=== PATIENT | male | born 1945 | race Caucasian/White ===

== ENCOUNTER 2016-10-17 14:22 | Observation (INO) | payer OTHER ==
[2016-10-17] MEDS ORDERED: ATIVAN INJ 2 MG VIAL ONE (14:30)
[2016-10-17] MEDS ORDERED: NS 1000 ML 1,000 ML ONE (14:32)
[2016-10-17] MEDS ORDERED: NS 1000 ML 1,000 ML IV ONE (14:33)
[2016-10-17] MEDS ORDERED: SOLU-Medrol 125 MG VIAL ONE (14:50)
[2016-10-17] MEDS ORDERED: BENADRYL INJ 50 MG VIAL ONE (14:50)
[2016-10-17] MEDS ORDERED: BENADRYL INJ 50 MG VIAL IVP ONE (14:54)
[2016-10-17] MEDS ORDERED: SOLU-Medrol 125 MG VIAL IVP ONE (14:54)
[2016-10-17] MEDS ORDERED: ATIVAN INJ 2 MG VIAL IVP ONE (14:57)
--- NOTE | 2016-10-17 14:57 | DR.GENAD ---
HPI - PCP Primary Care Physician: NORBERT - HPI Comment HPI Comment: HISTORY BELOW. - Complaint/Symptoms Chief Complaint Doctors Comments: PATIENT TOOK THE NEW COMBINATION MED FOR DEMENTIA AND BECAME AGGITATED COMPLAINING OF THROAT SWELLING AND SOB. ALSO PRESSURE IN THE HEAD. HE IS RESTLESS. Chief Complaint:: HURTING ALL OVER, CHANGES IN BLOOD PRESSURE. STARTED NEW MEDS FROM KAREN MCKEON. NUMB ALL OVER - Nurses notes reviewed Nurses Notes Review: Yes - Source History Provided: Family Member - Mode of Arrival Mode of Arrival: Wheelchair - Timing Onset of Chief Complaint: 10/17/16 Came on: Suddenly - Duration Duration: Constant Duration: Hours - Severity Severity: Moderate PMH - PMH Past Medical History: No Past Surgical History: No - Family History History of Family Medical Conditions: No - Social History Does any household member use tobacco: No Alcohol Use: None Do you use any recreational Drugs:: No Lives With: Family Lives Where: Home - infectious screening In the last 2 months have you had wt loss of >10#?: NO Have you had fever, night sweats or hemotysis?: No Have you traveled outside the country in the last 6 months?: No Isolation: Standard ROS - Review of Systems Constitutional: No Symptoms Reported Eyes: No Symptoms Reported ENTM: Mouth Swelling, Throat Pain. negative: Ear Pain, Nose Discharge, Nose Congestion Respiratoy: Non-Productive Cough, Short of Breath, Wheezing. negative: Hemoptysis Cardiovascular: Chest Pain, Edema Gastrointestinal/Abdominal: negative: Abdominal Pain, Diarrhea, Nausea, Vomiting Genitourinary: negative: Dysuria, Frequency, Hematuria Neurological: Headache, Dizziness Musculoskeletal: Muscle Pain Integumentary: No Symptoms Reported Hematologic/Lymphatic: No Symptoms Reported Endocrine: No Symptoms Reported All Other Systems: Reviewed and Negative Unable to Obtain Due To: Altered mental status PE - Vital Signs Vitals: Temperature 97.1 F Pulse Rate 79 Respiratory Rate 20 Blood Pressure 170/85 O2 Sat by Pulse Oximetry 100 - General Limitations: Altered Mental Status General Appearance: Alert, Anxious, Other (AGGITATED) - Head Head Exam: Normal Inspection - Eyes Eye exam: Normal Appearance - ENT ENT Exam: Normal External Ear Exam External Ear Exam: Normal External Inspection TM/Canal Exam: Bilateral Normal Nose Exam: Normal Nose Exam Mouth Exam: Normal Inspection Throat Exam: Normal Inspection - Neck Neck Exam: Trachea Midline - Chest Chest Inspection: Symmetric Chest Wall Rise - Respiratory Respiratory Exam: Normal Lung Sounds Bilat Respiratory Exam: Bilateral Clear to Auscultation - Cardiovascular Cardiovascular Exam: Regular Rate, Normal Rhythm, Normal Heart Sounds - Abdominal Exam Abdominal Exam: Normal Bowel Sounds, Soft. negative: Tenderness - Extremities Extremities Exam: Normal Inspection - Back Back Exam: Normal Inspection - Neurologic Neurological Exam: Alert - Psychiatric Psychiatric Exam: Agitated, Anxious - Skin Skin Exam: Erythema MDM - Additional Information Additional Information Obtained From: Family - Differential Diagnosis Differential Diagnosis: CVA, DRUG SIDE EFFECT, ALLERGIC REACTION TO MEDICATION, [place], UTI Course - Treatment Treatment: SEE ORDERS. IV MEDS FOR ALLERGIC REACTION AND ATIVAN IN. PATIENT CALMING DOWN. - Consultation Consultation Comments: DISCUSS PATIENT WITH DR. MCKEON. HE WILL ADMIT PATIENT. - Education/Counseling Education/Counseling: Patient, Family, Education Educated On: Treatment, Diagnosis ROR - Labs Reviewed Laboratory Results Reviewed?: Yes Result Diagrams: 10/18/16 04:20 10/18/16 04:20 - XRAY XRAY Interpreted by: Radiologist XRAY Findings: REPORT DISCUSS WITH PATIENTS FAMILY. - EKG Rhythm: NSR (EKG NOTED) - Diagnosis Discharge Problem: Pressure in head Mental status alteration Qualifiers: Altered mental status type: transient alteration of awareness Qualified Code(s) : R40.4 - Transient alteration of awareness Allergic reaction Qualifiers: Encounter type: initial encounter Qualified Code(s): T78.40XA - Allergy, unspecified, initial encounter - Discharge Plan Disposition: 01 HOME, SELF-CARE Condition: Stable - Follow ups/Referrals - Instructions
[2016-10-17 15:13] LABS: BASOPHILS # (AUTO) 0.1 X10^3/uL (0.0-0.1); BASOPHILS % (AUTO) 0.7 % (0.2-1.0); EOSINOPHILS # (AUTO) 0.1 x10^3/uL (0.0-0.2); EOSINOPHILS % (AUTO) 0.5 % (0.9-2.9); HEMATOCRIT 37.6 % (42.0-54.0); HEMOGLOBIN 12.7 g/dL (13.5-18.0); LYMPHOCYTES # (AUTO) 1.7 X10^3/uL (1.3-2.9); MEAN CORPUSCULAR HEMOGLOBIN 30.2 pg (27.0-34.0); MEAN CORPUSCULAR HGB CONC 33.7 g/dL (33.0-35.0); MEAN CORPUSCULAR VOLUME 89.6 fL (80.0-100.0); MEAN PLATELET VOLUME 10.4 fL (7.4-11.0); MONOCYTES % (AUTO) 17.2 % (0.0-13.0); NEUTROPHILS # (AUTO) 7.6 x10^3/uL (2.2-4.8); NEUTROPHILS % (AUTO) 66.6 % (42.0-75.0); PLATELET COUNT 145 X10^3/uL (150.0-450.0); RED BLOOD COUNT 4.19 X10^6/uL (4.7-6.0); RED CELL DISTRIBUTION WIDTH 17.3 % (11.6-16.5); WHITE BLOOD COUNT 11.5 X10^3/uL (3.6-10.0)
[2016-10-17 15:29] LABS: ALANINE AMINOTRANSFERASE 28 Units/L (12-78); ALBUMIN 4.2 g/dL (3.4-5.0); ALKALINE PHOSPHATASE 85 Units/L (46-116); ASPARTATE AMINO TRANSFERASE 45 Units/L (15-37); BLOOD UREA NITROGEN 13 mg/dL (7-18); CALCIUM 9.4 mg/dL (8.5-10.1); CARBON DIOXIDE 27.5 mmol/L (21-32); CHLORIDE 106 mmol/L (98-107); CKMB % 0.5 % (<4); COR NA(FOR HYPERGLY) 144 mmol/L (136-145); CREATINE KINASE 615 Units/L (39-308); CREATININE 1.17 mg/dL (0.70-1.30); GLUCOSE 150 mg/dL (65-99); SODIUM 143 mmol/L (136-145); TOTAL PROTEIN 7.2 g/dL (6.4-8.2); TROPONIN I < 0.02 ng/mL (0-1.5); eGFR BLACK RACES > 60 (>60); eGFR NON BLACK RACES > 60 (>60)
--- NOTE | 2016-10-17 15:31 | CT ---
STUDY: CT HEAD WITHOUT CONTRAST HISTORY: Altered mental status. COMPARISON: None. TECHNIQUE: Multiple axial images of the head were obtained from the skull base to the vertex without administration of IV contrast. Automated exposure control (AEC) was utilized to adjust the MA and/o r kV. Findings: The sulci, cisterns and ventricles are age appropriate. There are scattered foci of low at tenuation in the periventricular and subcortical white matter of both hemispheres. This is a nonspec ific finding which likely represents microangiopathic change in a patient of this age. There is no evidence of acute territorial infarction, hemorrhage, mass, mass effect or midline shift . There are no abnormal extra-axial fluid collections. There is no evidence of acute osseous abnorma lity or significant soft tissue swelling. IMPRESSION: 1. No evidence of acute intracranial abnormality. 2. Nonspecific white matter change. 3. If there remains strong clinical concern for acute intracranial abnormality, then an MRI examinat ion should be considered for further evaluation. Reported By:
--- NOTE | 2016-10-17 15:33 | RAD ---
HISTORY: Chest pain Study: Chest one view Comparison: None Findings: The trachea is midline. The cardiac silhouette is unremarkable. The lungs are clear without focal infiltrate or effusion. The bony thorax is unremarkable. IMPRESSION: 1. No acute cardiopulmonary disease. Reported By:
[2016-10-17 15:36] LABS: ANISOCYTOSIS SLIGHT; GIANT PLATELET FEW; PLATELET MORPHOLOGY COMMENT ABNORMAL (NORMAL)
[2016-10-17 15:37] LABS: HYPOCHROMASIA SLIGHT; TARGET CELLS PRESENT
[2016-10-17 15:39] LABS: B-TYPE NATRIURETIC PEPTIDE 42.9 pg/mL (0-79)
[2016-10-17 21:43] VITALS: BMI 33.2
[2016-10-17 21:48] LABS: CKMB % 0.6 % (<4); CREATINE KINASE 347 Units/L (39-308); CREATINE KINASE MB 1.9 ng/mL (0-4.0); TROPONIN I < 0.02 ng/mL (0-1.5)
[2016-10-17] MEDS: NS 1000 ML 1,000 ML IV SCH (23:47)
[2016-10-18 05:33] LABS: BASOPHILS # (AUTO) 0.1 X10^3/uL (0.0-0.1); BASOPHILS % (AUTO) 0.6 % (0.2-1.0); HEMATOCRIT 32.9 % (42.0-54.0); HEMOGLOBIN 11.1 g/dL (13.5-18.0); LYMPHOCYTES # (AUTO) 0.9 X10^3/uL (1.3-2.9); LYMPHOCYTES % (AUTO) 6.6 % (21.0-51.0); MEAN CORPUSCULAR HEMOGLOBIN 30.3 pg (27.0-34.0); MEAN CORPUSCULAR HGB CONC 33.7 g/dL (33.0-35.0); MEAN CORPUSCULAR VOLUME 89.8 fL (80.0-100.0); MEAN PLATELET VOLUME 10.2 fL (7.4-11.0); MONOCYTES # (AUTO) 1.2 x10^3/uL (0.3-0.8); MONOCYTES % (AUTO) 8.9 % (0.0-13.0); NEUTROPHILS # (AUTO) 11.4 x10^3/uL (2.2-4.8); NEUTROPHILS % (AUTO) 83.9 % (42.0-75.0); PLATELET COUNT 130 X10^3/uL (150.0-450.0); RED BLOOD COUNT 3.66 X10^6/uL (4.7-6.0); RED CELL DISTRIBUTION WIDTH 16.9 % (11.6-16.5); WHITE BLOOD COUNT 13.6 X10^3/uL (3.6-10.0)
[2016-10-18 05:42] LABS: ALANINE AMINOTRANSFERASE 23 Units/L (12-78); ALBUMIN 3.3 g/dL (3.4-5.0); ALKALINE PHOSPHATASE 70 Units/L (46-116); ASPARTATE AMINO TRANSFERASE 31 Units/L (15-37); BLOOD UREA NITROGEN 12 mg/dL (7-18); CALCIUM 8.6 mg/dL (8.5-10.1); CARBON DIOXIDE 27.3 mmol/L (21-32); CHLORIDE 108 mmol/L (98-107); CKMB % 0.7 % (<4); COR CA(FOR HYPOALB) 9.2 mg/dL (8.5-10.1); COR NA(FOR HYPERGLY) 143 mmol/L (136-145); CREATINE KINASE 201 Units/L (39-308); CREATINE KINASE MB 1.4 ng/mL (0-4.0); CREATININE 0.87 mg/dL (0.70-1.30); GLUCOSE 115 mg/dL (65-99); MAGNESIUM 1.9 mg/dL (1.7-2.9); SODIUM 143 mmol/L (136-145); TOTAL PROTEIN 6.1 g/dL (6.4-8.2); TROPONIN I < 0.02 ng/mL (0-1.5); eGFR BLACK RACES > 60 (>60); eGFR NON BLACK RACES > 60 (>60)
[2016-10-18 06:06] LABS: PLATELET MORPHOLOGY COMMENT NORMAL (NORMAL)
[2016-10-18 06:07] LABS: ANISOCYTOSIS SLIGHT; HYPOCHROMASIA SLIGHT
[2016-10-18] MEDS: NS 1000 ML 1,000 ML IV SCH (07:59)
[2016-10-18 09:43] VITALS: BP 99/59
--- NOTE | 2016-10-18 14:01 | DR.CARTERS ---
Short Stay Summary - Admission Date Date of Admission: 10/17/16 - Discharge Date Discharge Date: 10/18/16 - Admission Diagnoses (1) Allergic reaction Status: Acute - Hospital Course Hospital Course: is a 71 year old patient of ours who presented to the emergency room with complaints of agitation and altered mental status. Patient reports he started on a new medication for dementia. He reports that he took it for the first time and became agitated with complaints of throat swelling, shortness of breath, and severe nausea and vomiting. Patient reports he is numb and hurts all over. Symptoms reportedly started suddenly and are moderate in severity. On arrival to er, vitals were 97.1-79-20-100%-170/85. Abnormal Labs: WBC 11.5, RBC 4.19, Hgb 12.7, Hct 37.6, RDW 17.3, Plt Count 145, Glucose 150, AST 45, Creatine Kinase 615, 347. Brain CT reported: No evidence of acute intracranial abnormality. Nonspecific white matter change. If there remains strong clinical concern for acute intracranial abnormality, then a MRI examination should be considered for further evaluation. Chest X-Ray reported: No acute cardiopulmonary disease. EKG: Sinus Rhythm. Rate=66. Patient admitted as observation for further evaluation and treatment. He was started on NS @75ml/hr , Benadryl 25mg IV x1, Solu-Medrol 125mg IV x1, Ativan 2mg IV x1, NS @75ml/hr. We planned to recheck labs and follow up with patient in the morning. On day 2 of stay, is alert and oriented. He is sitting up in bed with at bedside. He denies nausea, vomiting, or shortness of breath. Patient reports feeling well and has no complaints. Lungs are clear to auscultation. Vitals this am are 97.6-61-20-97%-100/58. CBC reports wbc 13.6, rbc 3.66, hgb 11.1, hct 32.9. cmp wnl except chloride 108, glucose 115, total protein 6.1, albumin 3.3. cardiac enzymes and ekgs wnl. we planned for discharge. instructions for medications and follow up discussed with patient and . both verbalized understanding. patient discharged to home with family in stable condition. he has instructions to stop taking namzaric, but to continue other home medications. he is scheduled for a follow up visit with us at the office on 10/25/16. - Discharge Medications Discharge Medications: Simvastatin [Simvastatin] 1 tab PO HS 10/17/16 [History] Tadalafil [CIALIS 20 MG *] 1 tab PO DAILY 10/17/16 [History] Thyroid,Pork [[place] Thyroid] 1 tab PO DAILY 10/17/16 [History] Aspirin EC [ASPIRIN EC 81 MG *] 1 tab PO DAILY 10/18/16 [History] - Discharge Plan Disposition: 01 HOME, SELF-CARE Condition: Stable - Follow up/Referrals Follow up/Referrals: Prince Mercado [Primary Care Provider] - 10/25/16 1:50 pm - Instructions Instructions: Drug Allergy, Hizj-da-Lcth Additional Instructions: ACTIVITY TOLERATED. DIET TOLERATED. Forms: Patient Portal
== END 2016-10-18 10:45 | disposition home or self-care (01) ==
LOC: ER 14:27 → MED/SURG 17:15
PROVIDERS: ADMIT Internal Medicine; ATTEND Internal Medicine
DX: T43.8X5A Adverse effect of other psychotropic drugs, initial encounter (principal); R40.4 Transient alteration of awareness; R06.02 Shortness of breath; R20.0 Anesthesia of skin; D72.828 Other elevated white blood cell count; D64.89 Other specified anemias; R73.09 Other abnormal glucose; R94.4 Abnormal results of kidney function studies; Y92.89 Other specified places as the place of occurrence of the external cause; R45.1 Restlessness and agitation; Z79.1 Long term (current) use of non-steroidal anti-inflammatories (NSAID); Z79.899 Other long term (current) drug therapy
CPT/HCPCS: 36415; 70450; 71010; 80053; 82550; 82553; 83735; 83880; 84484; 85025; 93005; 94760; 96365; 96367; 96374; 96375; 99284; A4222; G0378; J1200; J2060; J2930

== ENCOUNTER 2019-12-09 09:05 | Inpatient (IN) ==
[2019-12-09] MEDS ORDERED: ZOFRAN INJ 4 MG VIAL IVP ONE (09:10)
[2019-12-09] MEDS ORDERED: NS 500 ML IV 500 ML IV ONE ×2 (09:10→09:13)
[2019-12-09] MEDS ORDERED: ZOFRAN INJ 4 MG VIAL ONE (09:12)
--- NOTE | 2019-12-09 09:20 | DR.DIZZY ---
HPI Time seen Time Seen by Provider: 12/09/19 09:08 Complaint Chief Complaint Doctor Comments: Patient came to Hospital for outpatient labs but felt near syncopal and diaphoretic. His Hem/onc DR. CACERES ordered the labs due to a near syncopal episode at home. He started Leukemia oral med treatment last week. Nurses Notes Reviewed Nurses Notes Review: Yes Source History Provided: Patient Mode of Arrival Mode of Arrival: Wheelchair Timing Came on: Suddenly Symptom Onset: Known Duration Duration: Intermittent Duration: Hours Location of Weakness Weakness Location: Generalized Context Onset: With light exertion Does pt take pot. toxic medication?: Yes History of: None Stroke Symptoms: Dizziness Severity Severity: Normal activity level Modifying factors Worsens: Change in Position (bending over) Associated signs and symptoms Associated Signs and Symptoms: Near Syncope PMH PMH Past Medical History: Dyslipidemia and Hypothyroidism Past Surgical History: Yes Surgical History: Other Family History Family Medical History: Cancer Social History Do you use any recreational Drugs:: No ROS Review of Systems Constitutional: No Symptoms Reported Eyes: No Symptoms Reported ENTM: No Symptoms Reported Respiratoy: No Symptoms Reported Cardiovascular: Syncope (near syncope only) Gastrointestinal/Abdominal: No Symptoms Reported Genitourinary: No Symptoms Reported Neurological: No Symptoms Reported and Dizziness Musculoskeletal: No Symptoms Reported Integumentary: No Symptoms Reported Hematologic/Lymphatic: No Symptoms Reported Endocrine: No Symptoms Reported Psychiatric: No Symptoms Reported All Other Systems: Reviewed and Negative PE Vital Signs Vitals: Temperature 98.0 F Pulse Rate [Left] 79 Pulse Rate 91 Respiratory Rate 19 Blood Pressure [Left Arm] 100/53 Blood Pressure 121/57 O2 Sat by Pulse Oximetry 100 General Limitations: No Limitations General Appearance: Alert and In No Apparent Distress Head Head Exam: Normal Inspection, Atraumatic and Normocephalic Eyes Eye exam: Normal Appearance and EOMI ENT ENT Exam: Normal Exam and Normal Oropharynx Neck Neck Exam: Normal Inspection, Full ROM and Trachea Midline Chest Chest Inspection: Normal Inspection Respiratory Respiratory Exam: Normal Lung Sounds Bilat Respiratory Exam: Bilateral: Clear to Auscultation Cardiovascular Cardiovascular Exam: Regular Rate Abdominal Exam Abdominal Exam: Normal Inspection, Normal Bowel Sounds and Soft; negative Distention, Tenderness and Guarding Rectal Rectal Exam: Deferred Extremeties Extremities Exam: Normal Inspection and Full ROM Back Back Exam: Normal Inspection and Full ROM Neurologic Neurological Exam: Alert, Oriented X3 and CN II-XII Intact Speech: Fluid Speech; negative Receptive Aphasia and Expressive Aphasia Cranial Nerve Exam: EOM Function (II, III, IV, ): Normal Psychiatric Psychiatric Exam: Anxious Skin Skin Exam: Normal Color COURSE Consultation Called: : Call Returned: : Consultation Comments: 1010: case discussed with DR. CACERES recommended 2 units of platlets and 1 unit PRBC 1011: DR. Mercado called case discussed. transfuse 2 units platelets and he will evaluate for PRBC transfusion this afternoon. ROR Labs Reviewed Result Diagrams: 12/09/19 09:11 12/09/19 09:11 Laboratory: WBC 0.5 X10^3/uL (3.6-10.0) L* 12/09/19 09:11 RBC 2.26 X10^6/uL (4.7-6.0) L 12/09/19 09:11 Hgb 7.0 g/dL (13.5-18.0) L 12/09/19 09:11 Hct 22.6 % (42.0-54.0) L 12/09/19 09:11 MCV 100.1 fL (80.0-100.0) H 12/09/19 09:11 MCH 31.0 pg (27.0-34.0) 12/09/19 09:11 MCHC 31.0 g/dL (33.0-35.0) L 12/09/19 09:11 RDW 16.9 % (11.6-16.5) H 12/09/19 09:11 Plt Count 9 X10^3/uL (150.0-450.0) L* 12/09/19 09:11 Plt Count Comment Decreased (ADEQUATE) 12/09/19 09:11 MPV 9.3 fL (7.4-11.0) 12/09/19 09:11 Neut % (Auto) 11.1 % (42.0-75.0) L 12/09/19 09:11 Lymph % (Auto) 75.9 % (21.0-51.0) H 12/09/19 09:11 [place] % (Auto) 13.0 % (0.0-13.0) 12/09/19 09:11 Eos % (Auto) 0.0 % (0.9-2.9) L 12/09/19 09:11 Baso % (Auto) 0 % (0.2-1.0) L 12/09/19 09:11 Neut # (Auto) 0.1 x10^3/uL (2.2-4.8) L 12/09/19 09:11 Lymph # (Auto) 0.4 X10^3/uL (1.3-2.9) L 12/09/19 09:11 [place] # (Auto) 0.1 x10^3/uL (0.3-0.8) L 12/09/19 09:11 Eos # (Auto) 0.0 x10^3/uL (0.0-0.2) 12/09/19 09:11 Baso # (Auto) 0.0 X10^3/uL (0.0-0.1) 12/09/19 09:11 Absolute Nucleated RBC 3.1 /100WBC 12/09/19 09:11 Total Counted 25 12/09/19 09:11 Neutrophils % (Manual) 12 % (39-76) L 12/09/19 09:11 Lymphocytes % (Manual) 88 % (13-43) H 12/09/19 09:11 Nucleated RBCs 5 12/09/19 09:11 Plt Morphology Comment Normal (NORMAL) 12/09/19 09:11 RBC Morphology Abnormal (NORMAL) 12/09/19 09:11 Hypochromasia 1+ A 12/09/19 09:11 Anisocytosis Slight A 12/09/19 09:11 Macrocytosis 1+ A 12/09/19 09:11 Sodium 142 mmol/L (136-145) 12/09/19 09:11 Corrected Sodium 143 mmol/L (136-145) 12/09/19 09:11 Potassium 4.2 mmol/L (3.5-5.1) 12/09/19 09:11 Chloride 106 mmol/L (98-107) 12/09/19 09:11 Carbon Dioxide 25.3 mmol/L (21-32) 12/09/19 09:11 BUN 16 mg/dL (7-18) 12/09/19 09:11 Creatinine 1.27 mg/dL (0.70-1.30) 12/09/19 09:11 Est GFR (MDRD) Af Amer > 60 (>60) 12/09/19 09:11 Est GFR (MDRD) Non-Af 59 (>60) 12/09/19 09:11 Glucose 128 mg/dL (65-99) H 12/09/19 09:11 Calcium 9.4 mg/dL (8.5-10.1) 12/09/19 09:11 Corrected Calcium TNP 12/09/19 09:11 Total Bilirubin 1.10 mg/dL (0.2-1.0) H 12/09/19 09:11 AST 18 Units/L (15-37) 12/09/19 09:11 ALT 19 Units/L (12-78) 12/09/19 09:11 Alkaline Phosphatase 64 Units/L (46-116) 12/09/19 09:11 Creatine Kinase 30 Units/L (39-308) L 12/09/19 09:11 CK-MB (CK-2) < 1.0 ng/mL (0-4.0) 12/09/19 09:11 CK/CKMB % Calc 3.3 % (<4) 12/09/19 09:11 Troponin I < 0.02 ng/mL (0-1.5) 12/09/19 09:11 Total Protein 7.1 g/dL (6.4-8.2) 12/09/19 09:11 Albumin 3.8 g/dL (3.4-5.0) 12/09/19 09:11 Globulin 3.3 g/dL (2.5-4.5) 12/09/19 09:11 Albumin/Globulin Ratio 1.2 Ratio (1.1-2.1) 12/09/19 09:11 EKG Rate: 82 Har[place]inger: LAD Rhythm: NSR Block: 1 Hypertrophy: None ST: Normal Opioid Opioid Risk Tool Age (Sam box if 16-45): No History of Preadolescent Sexual Abuse: No Total: 0 Total Score Risk Category: Low Risk Copyright: Lorenzo AGRAWAL predicting aberrant behaviors Diagnosis Discharge Problem: Other secondary thrombocytopenia Anemia Qualifiers: Anemia type: bone marrow failure Bone marrow failure anemia type: pancytopenia, antineoplastic chemotherapy-induced Qualified Code(s): D61.810 - Antineoplastic chemotherapy induced pancytopenia Instructions Forms: Precautions for COVID19 Patient Portal Social Distancing
[2019-12-09 09:22] LABS: BASOPHILS % (AUTO) 0 % (0.2-1.0); HEMATOCRIT 22.6 % (42.0-54.0); LYMPHOCYTES # (AUTO) 0.4 X10^3/uL (1.3-2.9); LYMPHOCYTES % (AUTO) 75.9 % (21.0-51.0); MEAN CORPUSCULAR VOLUME 100.1 fL (80.0-100.0); MEAN PLATELET VOLUME 9.3 fL (7.4-11.0); MONOCYTES # (AUTO) 0.1 x10^3/uL (0.3-0.8); NEUTROPHILS # (AUTO) 0.1 x10^3/uL (2.2-4.8); NEUTROPHILS % (AUTO) 11.1 % (42.0-75.0); RED BLOOD COUNT 2.26 X10^6/uL (4.7-6.0); RED CELL DISTRIBUTION WIDTH 16.9 % (11.6-16.5)
[2019-12-09 09:35] LABS: BLOOD UREA NITROGEN 16 mg/dL (7-18); CALCIUM 9.4 mg/dL (8.5-10.1); CARBON DIOXIDE 25.3 mmol/L (21-32); CHLORIDE 106 mmol/L (98-107); COR NA(FOR HYPERGLY) 143 mmol/L (136-145); CREATININE 1.27 mg/dL (0.70-1.30); SODIUM 142 mmol/L (136-145); TROPONIN I < 0.02 ng/mL (0-1.5); eGFR NON BLACK RACES 59 (>60)
[2019-12-09 09:41] LABS: ALANINE AMINOTRANSFERASE 19 Units/L (12-78); ALBUMIN 3.8 g/dL (3.4-5.0); ALKALINE PHOSPHATASE 64 Units/L (46-116); ASPARTATE AMINO TRANSFERASE 18 Units/L (15-37); CKMB % 3.3 % (<4); CREATINE KINASE 30 Units/L (39-308); CREATINE KINASE MB < 1.0 ng/mL (0-4.0); TOTAL PROTEIN 7.1 g/dL (6.4-8.2)
[2019-12-09 10:02] LABS: PLATELET COUNT 9 X10^3/uL (150.0-450.0); WHITE BLOOD COUNT 0.5 X10^3/uL (3.6-10.0)
[2019-12-09 10:03] LABS: PLATELET MORPHOLOGY COMMENT NORMAL (NORMAL)
[2019-12-09 10:04] LABS: HYPOCHROMASIA 1+
[2019-12-09 10:06] LABS: ANISOCYTOSIS SLIGHT
[2019-12-09 12:36] LABS: IRON 179 ug/dL (50-175)
[2019-12-09 12:58] VITALS: BMI 32.8
[2019-12-09] MEDS ORDERED: AFLURIA II4 or FLUARIX II4 IM ONE (12:59)
[2019-12-09] MEDS: NS 1000 ML 1,000 ML IV SCH (14:00)
[2019-12-09] MEDS ORDERED: BENADRYL INJ 50 MG VIAL IVP ONE (16:03)
[2019-12-09] MEDS ORDERED: TYLENOL 325 MG TAB PO ONE ×2 (16:03→16:09)
[2019-12-09] MEDS ORDERED: LASIX IVP PRN (16:04)
[2019-12-09] MEDS ORDERED: BENADRYL INJ 50 MG VIAL ONE (16:09)
[2019-12-09] MEDS ORDERED: NS 250 ML IV 250 ML IV ONE ×2 (16:21→21:26)
[2019-12-09] MEDS ORDERED: MAALOX or MYLANTA PO PRN (20:40)
[2019-12-10] MEDS: NS 1000 ML 1,000 ML IV SCH ×3 (00:21→14:16)
[2019-12-10 06:25] LABS: BASOPHILS % (AUTO) 0 % (0.2-1.0); HEMOGLOBIN 8.1 g/dL (13.5-18.0); MONOCYTES # (AUTO) 0 x10^3/uL (0.3-0.8); NEUTROPHILS # (AUTO) 0.1 x10^3/uL (2.2-4.8); RED BLOOD COUNT 2.61 X10^6/uL (4.7-6.0)
[2019-12-10 06:29] LABS: EOSINOPHILS % (AUTO) 0.4 % (0.9-2.9); HEMATOCRIT 25.1 % (42.0-54.0); LYMPHOCYTES # (AUTO) 0.5 X10^3/uL (1.3-2.9); LYMPHOCYTES % (AUTO) 83.8 % (21.0-51.0); MEAN CORPUSCULAR HEMOGLOBIN 31.1 pg (27.0-34.0); MEAN CORPUSCULAR HGB CONC 32.3 g/dL (33.0-35.0); MEAN CORPUSCULAR VOLUME 96.4 fL (80.0-100.0); MONOCYTES % (AUTO) 4.3 % (0.0-13.0); NEUTROPHILS % (AUTO) 11.5 % (42.0-75.0); RED CELL DISTRIBUTION WIDTH 17.9 % (11.6-16.5)
[2019-12-10 06:30] LABS: ALANINE AMINOTRANSFERASE 16 Units/L (12-78); ALBUMIN 3.5 g/dL (3.4-5.0); ALKALINE PHOSPHATASE 60 Units/L (46-116); ASPARTATE AMINO TRANSFERASE 21 Units/L (15-37); BLOOD UREA NITROGEN 14 mg/dL (7-18); CALCIUM 8.9 mg/dL (8.5-10.1); CARBON DIOXIDE 28.9 mmol/L (21-32); CHLORIDE 106 mmol/L (98-107); CREATININE 1.11 mg/dL (0.70-1.30); SODIUM 142 mmol/L (136-145); TOTAL PROTEIN 6.7 g/dL (6.4-8.2); eGFR NON BLACK RACES > 60 (>60)
[2019-12-10 06:55] LABS: WHITE BLOOD COUNT 0.5 X10^3/uL (3.6-10.0)
[2019-12-10 06:56] LABS: PLATELET COUNT 6 X10^3/uL (150.0-450.0)
[2019-12-10 07:14] LABS: PLATELET MORPHOLOGY COMMENT NORMAL (NORMAL)
[2019-12-10 07:15] LABS: ANISOCYTOSIS 1+; HYPOCHROMASIA 2+
[2019-12-10 07:16] LABS: POIKILOCYTOSIS SLIGHT
--- NOTE | 2019-12-10 09:01 | DR.H&P ---
H&P - History & Physical for Day of: H&P Date: 12/09/19 - Chief Complaint Chief Complaint: WEAKNESS, NAUSEA, NEAR SYNCOPE, DIZZINESS, ABNORMAL LABS - History of Present Illness History of Present Illness: IS A 74 YEAR OLD PATIENT OF OURS. HE PRESENTED TO THE HOSPITAL FOR OUTPATIENT LABS THAT WERE ORDERED BY , HEMATOLOGY AND ONCOLOGY. THE LABS WERE ORDERED DUE TO COMPLAINTS OF DIZZINESS AND NEAR SYNCOPE AT HOME THAT STARTED EARLIER IN THE DAY. PATIENT REPORTS THAT HE STARTED A NEW ORAL MEDICATION FOR TREATMENT OF LEUKEMIA LAST WEEK. HE DENIES PAIN. HE STATES THAT CHANGES IN POSITION MAKE SYMPTOMS WORSE. ASSOCIATED SYMPT OMS INCLUDE WEAKNESS AND NAUSEA. LABS REVEALED THE FOLLOWING ABNORMAL VALUES: WBC 0.5, RBC 2.26, HGB 7.0, HCT 22.6, PLT COUNT 9, GLUCOSE 128, IRON 179, TRANSFERRIN 172, TOTAL BILI 1.10, CREATINE KINASE 30. HE WAS SENT THROUGH THE ER FOR FURTHER EVALUATION. ON ARRIVAL, VITALS WERE 98.0-91-17-100%RA-121/57. AN EKG WAS OBTAINED AND REVEALED SINUS RHYTHM WITH HR 82. CARDIAC ENZYMES WERE WITHIN NORMAL LIMITS. HE WAS GIVEN A NORMAL SALINE BOLUS AND ZOFRAN 4MG IV X 1. HE WAS THEN ADMITTED TO THE HOSPITAL FOR FURTHER EVALUATION AND TREATMENT OF ANEMIA, THROMBOCYTOPENIA, AND GENERALIZED WEAKNESS. WE OBTAINED A TYPE AND SCREEN AND CROSSMATCHED TWO UNITS OF PACKED RED BLOOD CELLS. HE WAS STARTED ON NORMAL SALINE AT 80 ML/HR. WHEN BLOOD IS AVAILABLE, WE WILL TRANSFUSE THE TWO UNITS. A PACK OF PLATELETS HAVE BEEN ORDERED AND WILL BE TRANSFUSED WHEN AVAILABLE. WE WILL REVIEW HIS HOME MEDICATIONS. OTHERWISE, WE WILL FOLLOW UP WITH AM LABS AND CONTINUE TO MONITOR. - Past Medical History Past Medical History: Dyslipidemia, Hypothyroidism - Past Surgical History Surgical History: Other - Family History Family Medical History: Cancer - Social History Does patient currently use any type of tobacco product: No Have you used tobacco products in the last 12 months: No Type of Tobacco Use: None Alcohol Use: None - Medications Home Medications: No Known Drug Allergies Allergy (Verified 12/09/19 09:07) CONTINUE taking the following medications acyclovir 400 mg PO BID 12/09/19 [History] clindamycin HCl 300 mg PO TID 12/09/19 [History] isosorbide mononitrate 30 mg PO DAILY 12/09/19 [History] levofloxacin 500 mg PO DAILY 12/09/19 [History] levothyroxine 75 mcg PO DAILY 12/09/19 [History] mupirocin 1 applic TOPICAL BID 12/09/19 [History] - Review of Systems Constitutional: See HPI, Weakness Eyes: No Symptoms Reported ENT: No Symptoms Reported Respiratory: No Symptoms Reported Cardiovascular: Light Headedness Gastrointestinal: Nausea Genitourinary: No Symptoms Reported Musculoskeletal: No Symptoms Reported Skin: No Symptoms Reported Neurological: Weakness - Physical Exam Vital Signs: Temperature 97.4 F Pulse Rate [Left] 73 Pulse Rate 91 Respiratory Rate 20 Blood Pressure [Left Arm] 124/68 Blood Pressure 121/57 O2 Sat by Pulse Oximetry 99 Oriented: Normal Eyes: Normal Ear: Normal Nose: Normal Throat: Normal Respiratory: Diminished Throughout Cardiovascular: Normal : Normal Auscultation: Bowel Sounds: Normal Palpation: Normal Tenderness: Normal Skin: Decreased [place] Musculoskeletal: Normal Psychiatric: Normal Mood Description: Calm Affect: Normal Speech Pattern: Clear - Assessment/Plan (1) Anemia Qualifiers: Anemia type: bone marrow failure Bone marrow failure anemia type: pancytopenia, antineoplastic chemotherapy-induced Qualified Code(s): D61.810 - Antineoplastic chemotherapy induced pancytopenia; T45.1X5A - Adverse effect of antineoplastic and immunosuppressive drugs, initial encounter Status: Acute Plan: ADMIT, NS AT 80 ML/HR, TRANSFUSE 2 UNITS PRBC, TRANSFUSE PLATELETS, CONTINUE TO MONITOR (2) Other secondary thrombocytopenia Status: Acute (3) Leukemia Qualifiers: Leukemia type: unspecified Leukemia Active/Remission status: without remission Qualified Code(s): C95.90 - Leukemia, unspecified not having achieved remission Status: Acute (4) Generalized weakness Status: Acute (5) Syncope Qualifiers: Syncope type: unspecified Qualified Code(s): R55 - Syncope and collapse Status: Acute (6) Double vision Status: Acute - Allergies Allergies/Adverse Reactions: Allergies Allergy/AdvReac Type Severity Reaction Status Date / Time No Known Drug Allergies Allergy Verified 12/09/19 09:07
[2019-12-10] MEDS ORDERED: ATIVAN TAB 0.5 MG PO PRN (09:04)
[2019-12-10] MEDS ORDERED: ANTIVERT TAB 25 MG PO PRN (09:04)
[2019-12-10] MEDS ORDERED: BACTROBAN TOPICAL OINT TOP SCH (10:00)
[2019-12-10] MEDS ORDERED: ZOVIRAX PO SCH (10:00)
[2019-12-10] MEDS ORDERED: SYNTHROID 75 mcg TAB PO SCH (10:00)
[2019-12-10 16:29] VITALS: BP 120/87
[2019-12-10] MEDS ORDERED: ZOCOR TAB 20 MG PO SCH (21:00)
== END 2019-12-10 17:10 | disposition home or self-care (01) | DRG 809 ==
LOC: ER 09:05 → MED/SURG 10:21
PROVIDERS: ADMIT Internal Medicine; ATTEND Internal Medicine
DX: T45.1X5A Adverse effect of antineoplastic and immunosuppressive drugs, initial encounter; R55 Syncope and collapse; R42 Dizziness and giddiness; H53.2 Diplopia; E78.2 Mixed hyperlipidemia; D69.59 Other secondary thrombocytopenia; E03.8 Other specified hypothyroidism; R94.31 Abnormal electrocardiogram [ECG] [EKG]; D61.810 Antineoplastic chemotherapy induced pancytopenia; C95.90 Leukemia, unspecified not having achieved remission

== ENCOUNTER 2020-07-31 14:17 | Observation (INO) ==
[2020-07-31 14:38] VITALS: BMI 29.2
--- NOTE | 2020-07-31 14:39 | DR.WEAKNES ---
HPI Time Seen Time Seen by Provider: 07/31/20 14:36 PMH PMH Past Medical History: Dyslipidemia, Hypothyroidism and Kidney Stones Past Surgical History: No Surgical History: Other Family History Family Medical History: Hypertension Social History Do you use any recreational Drugs:: No ROS Review of Systems Constitutional: No Symptoms Reported Eyes: No Symptoms Reported ENTM: No Symptoms Reported Respiratoy: No Symptoms Reported Cardiovascular: No Symptoms Reported Gastrointestinal/Abdominal: No Symptoms Reported Genitourinary: No Symptoms Reported Neurological: No Symptoms Reported Musculoskeletal: No Symptoms Reported Integumentary: No Symptoms Reported Hematologic/Lymphatic: No Symptoms Reported Endocrine: No Symptoms Reported Psychiatric: No Symptoms Reported All Other Systems: Reviewed and Negative PE Vital Signs Vitals: Temperature 99.2 F Pulse Rate 79 Respiratory Rate 19 Blood Pressure [Left Arm] 130/73 Blood Pressure 114/64 O2 Sat by Pulse Oximetry 97 General Limitations: No Limitations General Appearance: Alert and In No Apparent Distress Head Head Exam: Normal Inspection Eyes Eye exam: Normal Appearance Eyelids: Normal Inspection: Bilateral Pupils: Regular, Round: Bilateral Sclera/Conjunctival: Normal Inspection: Bilateral Anterior Chamber: Normal Inspection: Bilateral ENT ENT Exam: Normal Exam Mouth Exam: Normal Inspection Throat Exam: Normal Inspection Neck Neck Exam: Normal Inspection Chest Chest Inspection: Normal Inspection Respiratory Respiratory Exam: Normal Lung Sounds Bilat Respiratory Exam: Bilateral: Clear to Auscultation Cardiovascular Cardiovascular Exam: Regular Rate and Normal Rhythm Abdominal Exam Abdominal Exam: Normal Inspection, Normal Bowel Sounds and Soft Extremities Extremities Exam: Normal Inspection Back Back Exam: Normal Inspection Neurologic Neurological Exam: Alert and Oriented X3 Psychiatric Psychiatric Exam: Normal Affect and Normal Mood Skin Skin Exam: Warm, Dry, Intact and Normal Color ROR Labs Reviewed Result Diagrams: 07/31/20 14:54 07/31/20 14:54 Laboratory: WBC 0.9 X10^3/uL (3.6-10.0) L* 07/31/20 14:54 RBC 2.23 X10^6/uL (4.7-6.0) L 07/31/20 14:54 Hgb 6.9 g/dL (13.5-18.0) L* 07/31/20 14:54 Hct 19.8 % (42.0-54.0) L* 07/31/20 14:54 MCV 88.6 fL (80.0-100.0) 07/31/20 14:54 MCH 31.1 pg (27.0-34.0) 07/31/20 14:54 MCHC 35.1 g/dL (33.0-35.0) H 07/31/20 14:54 RDW 16.7 % (11.6-16.5) H 07/31/20 14:54 Plt Count 4 X10^3/uL (150.0-450.0) L* 07/31/20 14:54 Plt Count Comment Decreased (ADEQUATE) 07/31/20 14:54 MPV 7.0 fL (7.4-11.0) L 07/31/20 14:54 Neut % (Auto) 43.0 % (42.0-75.0) 07/31/20 14:54 Lymph % (Auto) 54.5 % (21.0-51.0) H 07/31/20 14:54 Beaver % (Auto) 0.7 % (0.0-13.0) 07/31/20 14:54 Eos % (Auto) 1.8 % (0.9-2.9) 07/31/20 14:54 Baso % (Auto) 0 % (0.2-1.0) L 07/31/20 14:54 Neut # (Auto) 0.4 x10^3/uL (2.2-4.8) L 07/31/20 14:54 Lymph # (Auto) 0.5 X10^3/uL (1.3-2.9) L 07/31/20 14:54 Beaver # (Auto) 0 x10^3/uL (0.3-0.8) L 07/31/20 14:54 Eos # (Auto) 0.0 x10^3/uL (0.0-0.2) 07/31/20 14:54 Baso # (Auto) 0.0 X10^3/uL (0.0-0.1) 07/31/20 14:54 Absolute Nucleated RBC 0.7 /100WBC 07/31/20 14:54 Total Counted 25 07/31/20 14:54 Neutrophils % (Manual) 28 % (39-76) L 07/31/20 14:54 Lymphocytes % (Manual) 68 % (13-43) H 07/31/20 14:54 Monocytes % (Manual) 4 % (4-9) 07/31/20 14:54 Plt Morphology Comment Normal (NORMAL) 07/31/20 14:54 RBC Morphology Abnormal (NORMAL) 07/31/20 14:54 Anisocytosis Slight A 07/31/20 14:54 Sodium 141 mmol/L (136-145) 07/31/20 14:54 Corrected Sodium 142 mmol/L (136-145) 07/31/20 14:54 Potassium 3.1 mmol/L (3.5-5.1) L 07/31/20 14:54 Chloride 102 mmol/L (98-107) 07/31/20 14:54 Carbon Dioxide 29.5 mmol/L (21-32) 07/31/20 14:54 BUN 24 mg/dL (7-18) H 07/31/20 14:54 Creatinine 2.54 mg/dL (0.70-1.30) H 07/31/20 14:54 Est GFR (MDRD) Af Amer 32 (>60) L 07/31/20 14:54 Est GFR (MDRD) Non-Af 26 (>60) L 07/31/20 14:54 Glucose 139 mg/dL (65-99) H 07/31/20 14:54 Calcium 8.6 mg/dL (8.5-10.1) 07/31/20 14:54 Corrected Calcium 9.2 mg/dL (8.5-10.1) 07/31/20 14:54 Total Bilirubin 0.60 mg/dL (0.2-1.0) 07/31/20 14:54 AST 15 Units/L (15-37) 07/31/20 14:54 ALT 10 Units/L (12-78) L 07/31/20 14:54 Alkaline Phosphatase 94 Units/L (46-116) 07/31/20 14:54 Creatine Kinase 31 Units/L (39-308) L 07/31/20 14:54 CK-MB (CK-2) < 1.0 ng/mL (0-4.0) 07/31/20 14:54 CK/CKMB % Calc 3.2 % (<4) 07/31/20 14:54 Troponin I < 0.02 ng/mL (0-1.5) 07/31/20 14:54 Total Protein 6.5 g/dL (6.4-8.2) 07/31/20 14:54 Albumin 3.2 g/dL (3.4-5.0) L 07/31/20 14:54 Globulin 3.3 g/dL (2.5-4.5) 07/31/20 14:54 Albumin/Globulin Ratio 1.0 Ratio (1.1-2.1) L 07/31/20 14:54 Blood Type O POSITIVE 07/31/20 14:54 Antibody Screen Negative 07/31/20 14:54 Crossmatch See Detail 07/31/20 14:54 Opioid Opioid Risk Tool Age (Sam box if 16-45): No History of Preadolescent Sexual Abuse: No Total: 0 Total Score Risk Category: Low Risk Copyright: Lorenzo AGRAWAL predicting aberrant behaviors Instructions Forms: Precautions for COVID19 Patient Portal Social Distancing
[2020-07-31] MEDS ORDERED: NS 1000 ML 1,000 ML ONE (14:52)
[2020-07-31] MEDS: NS 1000 ML 1,000 ML IV SCH ×2 (15:04→23:00)
[2020-07-31 15:10] LABS: BASOPHILS % (AUTO) 0 % (0.2-1.0); EOSINOPHILS % (AUTO) 1.8 % (0.9-2.9); LYMPHOCYTES # (AUTO) 0.5 X10^3/uL (1.3-2.9); LYMPHOCYTES % (AUTO) 54.5 % (21.0-51.0); MEAN CORPUSCULAR HEMOGLOBIN 31.1 pg (27.0-34.0); MEAN CORPUSCULAR HGB CONC 35.1 g/dL (33.0-35.0); MEAN CORPUSCULAR VOLUME 88.6 fL (80.0-100.0); MONOCYTES # (AUTO) 0 x10^3/uL (0.3-0.8); MONOCYTES % (AUTO) 0.7 % (0.0-13.0); NEUTROPHILS # (AUTO) 0.4 x10^3/uL (2.2-4.8); RED BLOOD COUNT 2.23 X10^6/uL (4.7-6.0); RED CELL DISTRIBUTION WIDTH 16.7 % (11.6-16.5)
[2020-07-31] MEDS ORDERED: NS 1000 ML 1,000 ML IV ONE (15:13)
[2020-07-31 15:28] LABS: WHITE BLOOD COUNT 0.9 X10^3/uL (3.6-10.0)
[2020-07-31 15:29] LABS: ALANINE AMINOTRANSFERASE 10 Units/L (12-78); ALBUMIN 3.2 g/dL (3.4-5.0); ALKALINE PHOSPHATASE 94 Units/L (46-116); ASPARTATE AMINO TRANSFERASE 15 Units/L (15-37); BLOOD UREA NITROGEN 24 mg/dL (7-18); CALCIUM 8.6 mg/dL (8.5-10.1); CARBON DIOXIDE 29.5 mmol/L (21-32); CHLORIDE 102 mmol/L (98-107); CKMB % 3.2 % (<4); COR CA(FOR HYPOALB) 9.2 mg/dL (8.5-10.1); COR NA(FOR HYPERGLY) 142 mmol/L (136-145); CREATINE KINASE 31 Units/L (39-308); CREATINE KINASE MB < 1.0 ng/mL (0-4.0); CREATININE 2.54 mg/dL (0.70-1.30); HEMATOCRIT 19.8 % (42.0-54.0); HEMOGLOBIN 6.9 g/dL (13.5-18.0); PLATELET COUNT 4 X10^3/uL (150.0-450.0); SODIUM 141 mmol/L (136-145); TOTAL PROTEIN 6.5 g/dL (6.4-8.2); TROPONIN I < 0.02 ng/mL (0-1.5); eGFR NON BLACK RACES 26 (>60)
[2020-07-31 15:39] LABS: PLATELET MORPHOLOGY COMMENT NORMAL (NORMAL)
[2020-07-31 15:40] LABS: ANISOCYTOSIS SLIGHT
--- NOTE | 2020-07-31 15:50 | RAD ---
HISTORYPT HERE WITH PROGESSIVELY WORSENING WEAKNESS, HAS HX OF MDS AND IS BEING TREATED WITH CHEMO, WAITING ON PLATELETS THAT SHOULD BE HERE TOMORROWSTUDYCHEST, 1 [id number]/13/2021.TECHNIQUEAP view of the chest 2 images.FINDINGSThe cardiac and mediastinal contours are within normal limits. The lungs are clear without focal consolidation or segmental collapse. No pleural effusion or pneumothorax. Soft tissue attenuation limits evaluation.IMPRESSIONNo acute pulmonary process.Electronically signed by: Shayne Price (July 31, 2020 15:48:05)
[2020-07-31] MEDS ORDERED: VANCOMYCIN IV *PREMIX 1 G/200 ML BAG 1 G/200 ML PIGGYBACK IV ONE (18:05)
[2020-07-31] MEDS ORDERED: ZOFRAN TAB 4 MG PO PRN (19:00)
[2020-07-31] MEDS ORDERED: NS 250 ML IV 250 ML IV ONE (20:18)
[2020-07-31] MEDS: MAXIPIME VIAL 1 GRAM 1 G in NS 50 ML IV + SPIKE MINIBAG* 50 ML IV SCH (20:25)
[2020-07-31] MEDS: HYDREA PO SCH (20:25)
[2020-07-31] MEDS: AMINOCAPROIC ACID 500 MG PO SCH (20:25)
[2020-07-31] MEDS ORDERED: ZOCOR TAB 20 MG PO SCH (21:00)
[2020-07-31] MEDS ORDERED: VANCOMYCIN IV *PREMIX 1 G/200 ML BAG 1 G/200 ML PIGGYBACK IV SCH (21:00)
[2020-07-31 22:08] LABS: BILIRUBIN,URINE NEGATIVE (NEGATIVE); BLOOD/HEMOGLOBIN,URINE 3+ (NEGATIVE); GLUCOSE, URINE NEGATIVE (NEGATIVE); KETONES,URINE NEGATIVE (NEGATIVE); LEUKOCYTE ESTERASE ,URINE NEGATIVE (NEGATIVE); NITRITES,URINE NEGATIVE (NEGATIVE); PH,URINE 6.5 (5.0 - 8.0); PROTEIN,URINE 2+ (NEGATIVE); UROBILINOGEN,URINE NORMAL (NORMAL)
[2020-07-31 22:17] LABS: APPEARANCE,URINE CLEAR (CLEAR); COLOR,URINE YELLOW (YELLOW); RBC,URINE NONE SEEN /HPF (0-3)
[2020-07-31 22:18] LABS: BACTERIA,URINE 1+ /HPF (NEGATIVE); GRANULAR CASTS,URINE FEW /LPF (NEGATIVE); HYALINE CASTS, URINE FEW /LPF (NEGATIVE); SQUAMOUS EPITHELIAL CELL,UR FEW /HPF (NEGATIVE)
[2020-08-01] MEDS ORDERED: NS 100 ML IV 100 ML IV ONE (00:45)
[2020-08-01] MEDS: NS 1000 ML 1,000 ML IV SCH ×2 (01:24→07:01)
[2020-08-01 04:23] LABS: BASOPHILS % (AUTO) 0 % (0.2-1.0); EOSINOPHILS % (AUTO) 2.2 % (0.9-2.9); HEMATOCRIT 22.8 % (42.0-54.0); LYMPHOCYTES # (AUTO) 0.4 X10^3/uL (1.3-2.9); LYMPHOCYTES % (AUTO) 42.6 % (21.0-51.0); MEAN CORPUSCULAR HEMOGLOBIN 30.8 pg (27.0-34.0); MEAN CORPUSCULAR HGB CONC 35.3 g/dL (33.0-35.0); MEAN CORPUSCULAR VOLUME 87.2 fL (80.0-100.0); MEAN PLATELET VOLUME 7.9 fL (7.4-11.0); MONOCYTES # (AUTO) 0 x10^3/uL (0.3-0.8); MONOCYTES % (AUTO) 1.3 % (0.0-13.0); NEUTROPHILS # (AUTO) 0.6 x10^3/uL (2.2-4.8); NEUTROPHILS % (AUTO) 53.9 % (42.0-75.0); PLATELET COUNT 26 X10^3/uL (150.0-450.0); RED BLOOD COUNT 2.61 X10^6/uL (4.7-6.0); RED CELL DISTRIBUTION WIDTH 16.1 % (11.6-16.5)
[2020-08-01 04:33] LABS: ALANINE AMINOTRANSFERASE 11 Units/L (12-78); ALBUMIN 2.9 g/dL (3.4-5.0); ALKALINE PHOSPHATASE 85 Units/L (46-116); ASPARTATE AMINO TRANSFERASE 16 Units/L (15-37); BLOOD UREA NITROGEN 23 mg/dL (7-18); CALCIUM 8.2 mg/dL (8.5-10.1); CARBON DIOXIDE 26.7 mmol/L (21-32); CHLORIDE 106 mmol/L (98-107); COR CA(FOR HYPOALB) 9.1 mg/dL (8.5-10.1); CREATININE 2.33 mg/dL (0.70-1.30); MAGNESIUM 1.5 mg/dL (1.7-2.9); SODIUM 144 mmol/L (136-145); TOTAL PROTEIN 5.8 g/dL (6.4-8.2); eGFR NON BLACK RACES 29 (>60)
[2020-08-01 04:47] LABS: MYELOCYTES % 16; PLATELET MORPHOLOGY COMMENT NORMAL (NORMAL)
[2020-08-01] MEDS: MAGNESIUM SULFATE 1 GRAM/100 mL PREMIX 1 GM/100 ML BAG IV PRN ×2 (05:25→06:30)
[2020-08-01] MEDS ORDERED: K-DUR TAB 20 MEQ PO ONE (06:08)
[2020-08-01] MEDS: AMINOCAPROIC ACID 500 MG PO SCH (08:54)
[2020-08-01] MEDS: MAXIPIME VIAL 1 GRAM 1 G in NS 50 ML IV + SPIKE MINIBAG* 50 ML IV SCH (08:55)
[2020-08-01] MEDS ORDERED: SYNTHROID 75 mcg TAB PO SCH (09:00)
[2020-08-01] MEDS ORDERED: IMDUR PO SCH (09:00)
[2020-08-01] MEDS: HYDREA PO SCH (09:04)
--- NOTE | 2020-08-01 09:26 | DR.SSS ---
SHORT STAY SUMMARY Admission Date Date of Admission: 07/31/20 Discharge Date Discharge Date: 08/01/20 Admission Diagnoses Admission Diagnoses: Symptomatic anemia Thrombocytopenia Discharge Diagnoses Discharge Diagnoses: Symptomatic anemia Thrombocytopenia Chief Complaint Chief Complaint: Dizziness Lightheaded History of Present Illness History of Present Illness: Pt is a 75 year old male past medical history of Leukemia presenting with more confusion than baseline and dizziness, lightheadedness. Past Medical History Past Medical History: Dyslipidemia, Hypothyroidism and Kidney Stones Past Surgical History Surgical History: Other Allergies Allergies Allergy/AdvReac Type Severity Reaction Status Date / Time No Known Drug Allergies Allergy Verified 05/16/20 13:50 Medications Home Medications: No Known Drug Allergies Allergy (Verified 05/16/20 13:50) CONTINUE taking the following medications aminocaproic acid 500 mg PO BID 07/31/20 [History] hydroxyurea 500 mg PO BID 07/31/20 [History] levofloxacin 500 mg PO DAILY 07/31/20 [History] potassium chloride 40 meq PO USEASDIRECTD 07/31/20 [History] Family History Family Medical History: Coronary Artery Disease Social History Does patient currently use any type of tobacco product: No Have you used tobacco products in the last 12 months: No Type of Tobacco Use: None Does any household member use tobacco: No Alcohol Use: None Drug Use: None Review of Systems Constitutional: Weakness; denies Fever and Chills Eyes: No Symptoms Reported ENT: No Symptoms Reported Respiratory: No Symptoms Reported Cardiovascular: No Symptoms Reported Gastrointestinal: No Symptoms Reported Genitourinary: No Symptoms Reported Musculoskeletal: No Symptoms Reported Skin: No Symptoms Reported Neurological: Confusion Physical Exam Vital Signs: Last Vital Signs Temp 98.9 F 08/01/20 04:00 Pulse 72 08/01/20 07:00 Resp 17 08/01/20 07:00 BP 120/61 08/01/20 07:00 Pulse Ox 100 08/01/20 07:00 Oriented: Normal Eyes: Normal Ear: Normal Nose: Normal Throat: Normal Respiratory: Clear Throughout Cardiovascular: Normal : Normal Auscultation: Bowel Sounds: Normal Palpation: Normal Tenderness: Normal Skin: Normal Musculoskeletal: Normal Psychiatric: Normal Mood Description: Calm Affect: Normal Speech Pattern: Clear Labs Labs: Laboratory Last Values WBC 1.0 X10^3/uL (3.6-10.0) L* 08/01/20 04:00 RBC 2.61 X10^6/uL (4.7-6.0) L 08/01/20 04:00 Hgb 8.0 g/dL (13.5-18.0) L 08/01/20 04:00 Hct 22.8 % (42.0-54.0) L 08/01/20 04:00 MCV 87.2 fL (80.0-100.0) 08/01/20 04:00 MCH 30.8 pg (27.0-34.0) 08/01/20 04:00 MCHC 35.3 g/dL (33.0-35.0) H 08/01/20 04:00 RDW 16.1 % (11.6-16.5) 08/01/20 04:00 Plt Count 26 X10^3/uL (150.0-450.0) L 08/01/20 04:00 Plt Count Comment Decreased (ADEQUATE) 08/01/20 04:00 MPV 7.9 fL (7.4-11.0) 08/01/20 04:00 Neut % (Auto) 53.9 % (42.0-75.0) 08/01/20 04:00 Lymph % (Auto) 42.6 % (21.0-51.0) 08/01/20 04:00 Piatt % (Auto) 1.3 % (0.0-13.0) 08/01/20 04:00 Eos % (Auto) 2.2 % (0.9-2.9) 08/01/20 04:00 Baso % (Auto) 0 % (0.2-1.0) L 08/01/20 04:00 Neut # (Auto) 0.6 x10^3/uL (2.2-4.8) L 08/01/20 04:00 Lymph # (Auto) 0.4 X10^3/uL (1.3-2.9) L 08/01/20 04:00 Piatt # (Auto) 0 x10^3/uL (0.3-0.8) L 08/01/20 04:00 Eos # (Auto) 0.0 x10^3/uL (0.0-0.2) 08/01/20 04:00 Baso # (Auto) 0.0 X10^3/uL (0.0-0.1) 08/01/20 04:00 Absolute Nucleated RBC 0.6 /100WBC 08/01/20 04:00 Total Counted 25 08/01/20 04:00 Neutrophils % (Manual) 12 % (39-76) L 08/01/20 04:00 Lymphocytes % (Manual) 68 % (13-43) H 08/01/20 04:00 Monocytes % (Manual) 4 % (4-9) 08/01/20 04:00 Myelocytes % 16 08/01/20 04:00 Plt Morphology Comment Normal (NORMAL) 08/01/20 04:00 RBC Morphology Normal (NORMAL) 08/01/20 04:00 Anisocytosis Slight A 07/31/20 14:54 PT 15.8 SECONDS (11.8-14.3) 08/01/20 04:00 INR Target Range - 08/01/20 04:00 INR 1.33 (0.8-1.3) H 08/01/20 04:00 APTT 39.9 SECONDS (22.9-36.5) H 08/01/20 04:00 PTT Comment - 08/01/20 04:00 Sodium 144 mmol/L (136-145) 08/01/20 04:00 Corrected Sodium TNP 08/01/20 04:00 Potassium 2.8 mmol/L (3.5-5.1) L* 08/01/20 04:00 Chloride 106 mmol/L (98-107) 08/01/20 04:00 Carbon Dioxide 26.7 mmol/L (21-32) 08/01/20 04:00 BUN 23 mg/dL (7-18) H 08/01/20 04:00 Creatinine 2.33 mg/dL (0.70-1.30) H 08/01/20 04:00 Est GFR (MDRD) Af Amer 35 (>60) L 08/01/20 04:00 Est GFR (MDRD) Non-Af 29 (>60) L 08/01/20 04:00 Glucose 107 mg/dL (65-99) H 08/01/20 04:00 Calcium 8.2 mg/dL (8.5-10.1) L 08/01/20 04:00 Corrected Calcium 9.1 mg/dL (8.5-10.1) 08/01/20 04:00 Magnesium 1.5 mg/dL (1.7-2.9) L 08/01/20 04:00 Total Bilirubin 0.70 mg/dL (0.2-1.0) 08/01/20 04:00 AST 16 Units/L (15-37) 08/01/20 04:00 ALT 11 Units/L (12-78) L 08/01/20 04:00 Alkaline Phosphatase 85 Units/L (46-116) 08/01/20 04:00 Creatine Kinase 31 Units/L (39-308) L 07/31/20 14:54 CK-MB (CK-2) < 1.0 ng/mL (0-4.0) 07/31/20 14:54 CK/CKMB % Calc 3.2 % (<4) 07/31/20 14:54 Troponin I < 0.02 ng/mL (0-1.5) 07/31/20 14:54 Total Protein 5.8 g/dL (6.4-8.2) L 08/01/20 04:00 Albumin 2.9 g/dL (3.4-5.0) L 08/01/20 04:00 Globulin 2.9 g/dL (2.5-4.5) 08/01/20 04:00 Albumin/Globulin Ratio 1.0 Ratio (1.1-2.1) L 08/01/20 04:00 Specimen Type Clean catch urine 07/31/20 21: Urine Color Yellow (YELLOW) 07/31/20 21: Urine Appearance Clear (CLEAR) 07/31/20 21: Urine pH 6.5 (5.0 - 8.0) 07/31/20 21: Ur Specific Carpenter 1.010 (1.000-1.030) 07/31/20 21:28 Urine Protein 2+ (NEGATIVE) 07/31/20 21: Urine Glucose (UA) Negative (NEGATIVE) 07/31/20: Urine Ketones Negative (NEGATIVE) 07/31/20 21: Urine Occult Blood 3+ (NEGATIVE) 07/31/20 21: Urine Nitrite Negative (NEGATIVE) 07/31/20 21: Urine Bilirubin Negative (NEGATIVE) 07/31/20 21: Urine Urobilinogen Normal (NORMAL) 07/31/20 21:28 Ur Leukocyte Esterase Negative (NEGATIVE) 07/31/20 21:28 Urine RBC None seen /HPF (0-3) 07/31/20 21:28 Urine WBC None seen /HPF (0-5) 07/31/20 21:28 Ur Squamous Epith Cells Few /HPF (NEGATIVE) 07/31/20 21:28 Urine Bacteria 1+ /HPF (NEGATIVE) 07/31/20 21:28 Hyaline Casts Few /LPF (NEGATIVE) 07/31/20 21:28 Granular Casts Few /LPF (NEGATIVE) 07/31/20 21:28 Ur Culture Indicated? No/not indicated 07/31/20 21:28 Blood Type O POSITIVE 07/31/20 14:54 Antibody Screen Negative 07/31/20 14:54 Crossmatch See Detail 07/31/20 14:54 Assessment/Plan (1) Leukemia: (2) Other secondary thrombocytopenia: (3) Symptomatic anemia: Hospital Course Hospital Course: Pt is a 75 year old male past medical history of Leukemia presenting with more confusion than baseline and dizziness, lightheadedness. In the ED, labs revealed: Wbc 0.9, Hgb 6.9, Plt 4. Pt was admitted for symptomatic anemia and labs trended. He received 2 units of packed red blood cells and 2 units of radiated platelets. He responded well after transfusion and symptoms improved backed to his baseline. Labs/imaging: Wbc 1.0, Hgb 8.0, Plt 26, Na 144, K 2.8, Creatinine 2.33, Glucose 107, Mag 1.5, UA negative, CXR: no acute cardiopulmonary abnormalities. Electrolyte abnormalities were repleted. Pt vitals remained stable and no concerns noted on physical exam. Pt was discharged home in stable condition. Instructed to follow up with Dr Garcia and pcp in 3-5 days. Discharge Medications Discharge Medications: Home Medication List aminocaproic acid 500 mg PO BID 07/31/20 [History] hydroxyurea 500 mg PO BID 07/31/20 [History] levofloxacin 500 mg PO DAILY 07/31/20 [History] potassium chloride 40 meq PO USEASDIRECTD 07/31/20 [History] Prescriptions: Discharge Disposition Discharge Disposition: Home
[2020-08-01 10:41] VITALS: BP 118/65
[2020-08-03] MEDS ORDERED: PHARMACY COMMENT IV NR (20:30)
== END 2020-08-01 10:15 | disposition home or self-care (01) ==
LOC: ICU 14:17 → ER 14:17 → ICU 19:15
PROVIDERS: ADMIT Family Medicine; ATTEND Internal Medicine